=== PATIENT | male | born 1990 | race Caucasian/White ===

== ENCOUNTER 2019-02-05 10:49 | Emergency (ER) | payer OTHER ==
[~2019-02-05] VITALS: Ht 182.9 cm; Wt 77.1 kg
[2019-02-05 12:38] LABS: ABSOLUTE NEUTROPHILS 5.9 thou/uL (1.4-8.2); BASOPHILS 0.4 % (0.0-2.0); EOSINOPHILS 1.2 % (0.0-3.0); HEMATOCRIT 52.4 % (42.0-52.0); HEMOGLOBIN 18.4 gm/dL (14.0-18.0); LYMPHOCYTES 17.3 % (24.0-44.0); MCH 31.1 pg (26.0-34.0); MCHC 35.1 g/dL (28.0-37.0); MCV 88.7 fL (80.0-100.0); MONOCYTES 10.2 % (1.0-8.0); PLATELET COUNT 235 thou/uL (150-400); POLYS 70.9 % (36.0-66.0); RBC 5.91 mil/uL (4.50-6.00); RDW 12.5 % (10.5-14.5); WBC 8.3 thou/uL (4.0-11.0)
[2019-02-05 12:42] LABS: CALCIUM 9.7 mg/dL (8.5-10.1); CREATININE 1.1 mg/dL (0.7-1.3); POTASSIUM 3.5 mmol/L (3.5-5.1)
[2019-02-05 12:43] LABS: MAGNESIUM 2.2 mg/dL (1.8-2.4)
[2019-02-05 13:25] VITALS: BP 145/82
--- NOTE | 2019-02-06 12:50 | EKG ---
[place] [address] [employer] [address] ELECTROCARDIOGRAM REPORT Name: GAYLE SANCHEZ Room #: DEP Sven#: [id number] ������������������ Admission: 02/05/19 ������������������ Attend Phys: Discharge: 02/05/19 ������������������ Date of : [birth year] Report #: [id number] ����������������������������������������������������������������� [id number] THIS REPORT FOR: //name// [facility] ED Test Date: 2019-02-05 Test Time: 11:00:15 Pat Name: GAYLE SANCHEZ Department: Room: Gender: Nail Galvanizer: : 1990 Requested By: Cliff Carmen Order Number: [id number] MD: Adelfo Cervantes Measurements Intervals [place] Rate: 119 P: 44 AR: 159 QRS: 15 QRSD: 102 T: 36 QT: 316 QTc: 445 Interpretive Statements Sinus tachycardia RSR' in V1 or V2, right VCD No previous ECG available for comparison Electronically Signed On 02-06-2019 12:49:56 CDT by Adelfo Cervantes [email or web address] ��������������������������������������������� <ELECTRONICALLY SIGNED> ���������������������������������������� By: Adelfo Cervantes MD, [facility] ��������������������������������������������� 02/06/19 1249 1100 [facility] Adelfo Cervantes MD, FACC /EPI
== END 2019-02-05 13:25 | disposition home or self-care (01) ==
LOC: ER 10:49
PROVIDERS: Emergency Medicine
DX: R00.0 Tachycardia, unspecified (principal); Z88.5 Allergy status to narcotic agent

== ENCOUNTER 2020-06-09 10:04 | Inpatient (IN) | payer BC, OTHER ==
[~2020-06-09] VITALS: Ht 188 cm; Wt 86.2 kg
--- NOTE | ~2020-06-09 | O ---
[facility] [place] [address] OPERATIVE REPORT Name: GAYLE SANCEHZ Room #: 440-P [facility] IN M.R.#: [id number] Admission: 06/09/20 Attend Phys: Saw López, Discharge: 06/10/20 Date of : [birth year] Report #: [id number] THIS REPORT FOR: cc: ANJEL - No family physician/PCP ANJEL - No family physician/PCP Saw López MD ~ CC: [facility] physician/PCP Saw López DATE OF SERVICE: 06/10/2020 PREOPERATIVE DIAGNOSIS: Acute appendicitis. POSTOPERATIVE DIAGNOSIS: Acute appendicitis. OPERATION: Laparoscopic appendectomy. SURGEON: Saw López MD ANESTHESIA: General. ESTIMATED BLOOD LOSS: Minimal. SPECIMEN: Appendix. DESCRIPTION OF PROCEDURE: After informed consent was obtained, the patient was brought to the operating room and placed supine. SCDs were placed and working, preoperative antibiotics were administered, general anesthesia was induced. The abdomen was prepped and draped in a usual sterile fashion. A 10-mm incision was made below the umbilicus. Fascia was incised and a trocar was placed. Pneumoperitoneum was established. A right upper quadrant and left lower quadrant 5-mm trocar was placed. The appendix was grasped and retracted anteriorly. It was very early appendicitis. The mesoappendix was isolated and ligated with a DARIO garrison load stapler. The base of the appendix was stapled off with a DARIO blue load stapler. It was placed into an Endopouch and removed. The fascia at the umbilicus was closed with a ohnyjj-lz-ixyow 0 Vicryl. Skin was closed with 4-0 Monocryl. Incisions were sealed with Dermabond. COMPLICATIONS: None. [facility] [address] [place] [address] OPERATIVE REPORT Name: GAYLE SANCHEZ Room #: 440-P [facility] IN .R.#: [id number] Admission: 06/09/20 Attend Phys: Saw López, Discharge: 06/10/20 Date of : [birth year] Report #: [id number] DISPOSITION: The patient was taken to recovery in satisfactory condition. By: 1206 1210 Saw López MD /nt
[2020-06-09 10:04] VITALS: BP 138/84
[2020-06-09 12:02] LABS: ABSOLUTE NEUTROPHILS 11.2 thou/uL (1.4-8.2); BASOPHILS 0.2 % (0.0-2.0); EOSINOPHILS 0.2 % (0.0-3.0); HEMATOCRIT 48.5 % (42.0-52.0); HEMOGLOBIN 16.9 gm/dL (14.0-18.0); LYMPHOCYTES 7.2 % (24.0-44.0); MCH 31.5 pg (26.0-34.0); MCHC 34.9 g/dL (28.0-37.0); MCV 90.2 fL (80.0-100.0); MONOCYTES 6.5 % (1.0-8.0); PLATELET COUNT 265 thou/uL (150-400); POLYS 85.9 % (36.0-66.0); RBC 5.38 mil/uL (4.50-6.00); RDW 12.4 % (10.5-14.5)
[2020-06-09 12:11] LABS: CALCIUM 9.5 mg/dL (8.5-10.1); CREATININE 1.1 mg/dL (0.7-1.3); POTASSIUM 3.9 mmol/L (3.5-5.1)
[2020-06-09 12:14] LABS: ALBUMIN 4.8 g/dL (3.4-5.0); TOTAL BILIRUBIN 0.8 mg/dL (0.2-1.0); TOTAL PROTEIN 8.4 g/dL (6.4-8.2)
[2020-06-09 18:48] VITALS: BP 132/67
[2020-06-09 19:05] VITALS: BP 132/67
[2020-06-09 19:18] VITALS: BP 130/68
[2020-06-09 20:31] VITALS: BP 142/72
[2020-06-10] VITALS (8 sets, daily range): BP systolic 130–142; BP diastolic 75–90
--- NOTE | 2020-06-10 03:36 | NUR ---
PT WAS ADMITTED TO THE UNIT IN THE COMPANY OF HIS MOM IN A STABLE CONDITION.PT DENIED PAIN ON ADMISSION.ADMISIION HX,EDUCATION AND ASSESSMENT COMPLETED.PT UP ADLIB IN THE ROOM WITH A STEADY GAIT.PT NPO SINCE ADMIT,MOUTH SWAB PROVIDED.PT RESTING ON HIS BED AT THIS TIME.CALL LIGHT WITHIN REACH.
[2020-06-10] MEDS ORDERED: BENICAR20 MG PO (10:11)
[2020-06-10] MEDS ORDERED: CARDIZEM SR 60M60 MG PO (10:14)
[2020-06-10] MEDS ORDERED: NORCO 10-325 T1 EACH PO (11:34)
--- NOTE | 2020-06-10 13:45 | NUR ---
ASSUMED CARES AT 0700. PT AWAKE, ALERT AND ORIENTED*4. VITALS STABLE. PT C/O MILD (2/10) PAIN IN LLQ. PT HAD APPENDECTOMY DONE THIS MORNING. RECOVERY WAS UNEVENTFUL, VITALS REMAINED STABLE POST-OP. PAIN 2/10 POST-OP, HEAT USED TO MANAGE DISCOMFORT. LAP-SITES APPROXIMATED WELL, STERI-STRIPS IN PLACE. PT UP WITH SBA POST OPERATIVELY. WILL CONTINUE TO MONITOR. PT CLEARED TO DC SOON ABLE TO TOLERATE ORAL INTAKE. FREQ VISUAL CHECKS. CALL LIGHT WITHIN REACH. FALL PRECAUTIONS IN PLACE
--- NOTE | 2020-06-10 15:31 | NUR ---
ASSESSMENT: CM REVIEWED CHART AND MET WITH PT. PT IS S/P LAP APPE. PT REPORTS LIVING IN A HOUSE BY HIMSELF. PTS MOTHER IS AT THE BEDSIDE AND SUPPORTIVE. PT REPORTS BEING FULLY INDEPENDENT WITH ADLS AND AMBULATION. PT DENIES HAVING HH IN THE PAST. CM DISCUSSED ROLE PT HAS NO ANTICIPATED NEEDS FROM CM PRIOR TO DISCHARGE. PLAN IS FOR PATIENT TO DISCHARGE HOME.
--- NOTE | 2020-06-12 17:06 | PATH ---
[facility] [address] [place] [address] PATHOLOGY RPT PROCEDURE Name: MIGUEL ANGEL SANCHEZ Room #: 440-P [facility] IN M.R.#: [id number] Admission: 06/09/20 Date of : 89 Discharge: 06/10/20 Report #: [id number] Path Case #: [id number] [facility] Accession Number: [id number] . 01 Material submitted: . appendix - APPENDIX . 01 Clinical history: . ACUTE APPENDICITIS . 02 Diagnosis: Appendix, appendectomy: - Moderate acute appendicitis along with acute serositis. (IUV/db; 06/12/2020) LBQ 06/12/2020 1436 Local . 02 Electronically signed: . Mera Monsalve MD, Pathologist NPI- [id number] . 01 Gross description: . The specimen is received in formalin, labeled "Miguel Angel Sanchez, appendix". Received is a vermiform appendix measuring 7.5 cm in length by up to 0.9 cm in diameter with a moderate amount of attached mesoappendix. The serosal surface is pale [place] and glistening in appearance with prominent vasculature. The surgical margin is closed with a line of khoa. The khoa are removed and the new margin is inked black. Sectioning reveals a patent lumen filled with a slight amount of possible fecal material. The specimen is submitted representatively in cassettes A1 and A2, with the proximal margin and bisected tip submitted in cassette A1. (CAA; 06/11/2020) QAC/QAC 06/11/2020 1349 Local . 02 Pathologist provided ICD-10: K35.80, K65.8 . 02 CPT . 663776 Specimen Comment: A courtesy copy of this report has been sent to [phone] Performed at: [address], [place] [id number] MD Twan Sanders MD Phone: [phone] Performed at: [address] [id number] MD Mera Monsalve MD Phone: [phone]
== END 2020-06-10 16:00 | disposition home or self-care (01) | DRG 343 ==
LOC: ER 10:04 → 4S 13:31 → EROBS 13:31 → 4S 19:32
PROVIDERS: Emergency Medicine; ADMIT Surgery; ATTEND Surgery
PROC: 0DTJ4ZZ Resection of Appendix, Percutaneous Endoscopic Approach (ICD-10-PCS; principal; 2020-06-10)
DX: K35.80 Unspecified acute appendicitis (principal); Z20.828 Contact with and (suspected) exposure to other viral communicable diseases; Z88.5 Allergy status to narcotic agent
CPT/HCPCS: 10102; 50010; 50101; 50411; 50555; 50739; 50740; 52265; 52266; 53307; 53312; 53314; 56525; 56526; 62110; 62900; 70005